=== PATIENT | female | born 1965 | race Caucasian/White ===

== ENCOUNTER 2017-01-04 16:00 | Observation (INO) | payer BC ==
--- NOTE | ~2017-01-04 | HP ---
History And Physical [place] [id number] [facility], [place]. [address] NAME: KRISTAN ALLRED : 63 STATUS : ADM Cecelia PAT#: [id number] AGE: 51 ADM/REG DATE : 01/04/17 MR#: [id number] REPORT SERV DATE: 01/05/17 DICTATED BY: ERI SON DATE: 01/05/17 REPORT STATUS : Draft TRANSCRIBED BY: MODL DATE: 01/05/17 DATE OF ADMISSION: 01/04/2017 CHIEF COMPLAINT: Chest pain with atypical features. HISTORY OF PRESENT ILLNESS: This is a very pleasant 51-year-old white female with no known history of CAD, reports that six weeks ago, she experienced an uncomfortable feeling such as difficulty catching her breath. She felt it was related to stress she had after the recent of her mother, and some anxiety. On January 03, she felt a full bloated sensation with some substernal chest pressure that radiated towards her back with an associated headache. She felt bloated to the point where she had to be aware of taking a deep breath. Her chest discomfort with that event was rated a 3/10. At the time of interview in the [facility], she was pain-free. She states that episode lasted all day Monday. She reports having consumed a [employer] sandwich with hummus and vegetables on Monday and she [facility] She reports associated shortness of breath, nausea, diaphoresis, dizziness, and belching. She did try several tablets or Rolaids with no relief. MondayJanuary 04, she again felt some shortness of breath and nausea indicating discomfort from her epigastrium to her chest with, at times a "fluttering sensation in her chest." The patient denies any personal history of myocardial infarction, stroke, DVT, or pulmonary embolus. The patient denies any recent fever or chills. Describes rare palpitations. Consumes tea "all day long" and occasional dark chocolate. No syncopal episodes. Denies PND or orthopnea. The patient receives a Wells criteria score of 0. PAST MEDICAL HISTORY: 1. Denies hypertension, dyslipidemia, or diabetes. 2. Remote tobacco abuse. PAST SURGICAL HISTORY: Hysterectomy and arthroscopic repair of left knee and a . SOCIAL HISTORY: She is with two children. 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 She does not have a structured exercise routine. Quit smoking in 1987. Denies alcohol or illicits. FAMILY HISTORY: Mother with cardiomyopathy and a history of polio, at 77. Paternal grandmother with heart attack at 50, cardiomyopathy, at the age of 79. Maternal uncle with cardiomyopathy and a heart transplant, at the age of 60. REVIEW OF SYSTEMS: A fourteen-point review of systems performed, significant for HPI. No other contributory diagnoses identified. ALLERGIES: NO KNOWN DRUG ALLERGIES. HOME MEDICINES: Vitamin D 2000 units daily, estradiol twice weekly, lutein caps nightly and History And Physical [address] [address] NAME: KRISTAN ALLRED : 63 STATUS : ADM Cecelia PAT#: [id number] AGE: 51 ADM/REG DATE : 01/04/17 MR#: [id number] REPORT SERV DATE: 01/05/17 DICTATED BY: ERI SON DATE: 01/05/17 REPORT STATUS : Draft TRANSCRIBED BY: LOS DATE: 01/05/17 probiotic nightly, multivitamin nightly, fish oil 2000 mg nightly, progesterone 100 mg nightly, and turmeric nightly. PHYSICAL EXAMINATION: VITAL SIGNS: Bilateral blood pressures on arrival, right 108/52, left 106/63; this morning, 104/54, pulse 80, respirations 12, temperature 97.9, O2 saturation 97% on room air. Height 5 feet 4 inches. Weight 177 pounds. BMI 30. GENERAL: Cooperative, in no apparent distress. HEENT: Pupils 2 mm, sclera nonicteric. Nares patent. Moist mucous membranes. No xanthelasma. NECK: Trachea midline, no thyromegaly. No JVD. No bruits. LYMPH: No cervical lymphadenopathy. No supraclavicular lymphadenopathy. RESPIRATORY: Unlabored respirations. Breath sounds clear bilaterally to posterior auscultation. No wheezes or rhonchi. CARDIOVASCULAR: Regular rate. No murmur, rub or gallop appreciated. EXTREMITIES: Without edema. Pulses 2+ bilaterally. ABDOMEN: Soft, nontender, nondistended, normal bowel sounds auscultated throughout. No organomegaly. SKIN: Warm, dry extremities. No pallor, or cyanosis. PSYCHIATRIC: Appropriate affect. Alert, oriented x3. LABORATORY DATA: Troponin less than 0.02 x3. Potassium 3.9, BUN 13, creatinine 1.02, glucose 104, magnesium 2.4. WBC 5.4, hemoglobin 13.1, hematocrit 40.4, and platelet count 221,000. EKG, sinus rhythm. ASSESSMENT AND PLAN: 1. Chest pain with atypical features. The patient has been observed in the CP[facility] overnight to rule out myocardial infarction with serial enzymes and serial electrocardiograms and held n.p.o. We will proceed with myocardial perfusion imaging today. The patient will be discharged home if low risk, no ischemia. If anything suggestive of ischemia, Cardiology referral will be initiated. Otherwise, the patient be asked to follow up with her primary care physician in one to two weeks with all studies being sent to that office. 2. Palpitations. No ectopy noted on overnight telemetry, although patient does report some episodes of fluttering while in CDU. We will check orthostatics and a thyroid stimulating hormone. Follow up with primary care physician. 3. Questionable gastroesophageal reflux disease component. Mylanta 30 mL p.o. now. CARRIE/LOS Eri Son, JARETH, [employer] History And Physical [address] [address] NAME: KRISTAN ALLRED EDIS : 63 STATUS : ADM Cecelia PAT#: [id number] AGE: 51 ADM/REG DATE : 01/04/17 MR#: [id number] REPORT SERV DATE: 01/05/17 DICTATED BY: ERI SON DATE: 01/05/17 REPORT STATUS : Draft TRANSCRIBED BY: MODL DATE: 01/05/17 / [id number] CC: Eri Son, MSN, [employer]EGAN [employer]
[2017-01-04 16:56] LABS: INTERNATIONAL NORMAL RATI 0.9 UNITS (-); PARTIAL THROMBO TIME 29.2 SEC (22.5-37.2); PROTIME (NOT ORD) 11.8 SEC (12.0-14.5)
[2017-01-04 17:03] LABS: BUN (BLOOD UREA NITROGEN) 13 MG/DL (6-23); CALCIUM, SERUM 8.7 MG/DL (8.5-10.4); CHEST PAIN PROFILE TAT 0 Hrs 18 Mins; CHLORIDE, SERUM 107 MMOL/L (96-112); CO2 (CARBON DIOXIDE) 30 MMOL/L (24-34); CREATININE 1.02 MG/DL (0.55-1.02); GFR AFRICAN AMERICAN 73 ML/MIN (>=60); GFR NON AFRICAN AMERICAN 63 ML/MIN (>=60); GLUCOSE, SERUM 104 MG/DL (60-99); POTASSIUM, SERUM 3.9 MMOL/L (3.5-5.3); SODIUM, SERUM 143 MMOL/L (135-148); TROPONIN I <0.02 NG/ML (<0.05)
[2017-01-04 17:12] LABS: BASOPHILS 0.4 %; BASOPHILS ABSOLUTE 0.02 10/3/uL (0.0-0.16); EOSINOPHILS 2.8 %; EOSINOPHILS ABSOLUTE 0.15 10/3/uL (0.0-0.53); HEMATOCRIT 40.4 % (36.0-48.0); HEMOGLOBIN 13.1 g/dL (12.0-16.0); LYMPHOCYTES 43.4 %; LYMPHOCYTES ABSOLUTE 2.36 10/3/uL (0.67-4.30); MEAN CORPUS HGB CONC 32.4 g/dL (32.0-36.0); MEAN CORPUSCULAR HEMOGLOB 29.9 pg (26.0-34.0); MEAN CORPUSCULAR VOLUME 92.2 fL (80-100); MEAN PLATELET VOLUME 10.3 fL (9.2-13.0); MONOCYTES 7.9 %; MONOCYTES ABSOLUTE 0.43 10/3/uL (0.21-1.20); NEUTROPHILS 45.5 %; NEUTROPHILS ABSOLUTE 2.48 10/3/uL (2.02-8.40); PLATELET COUNT 221 10/3/uL (150-400); RBC DISTRIBUTION WIDTH 12.6 % (12.0-16.0); RED CELL COUNT 4.38 10/6/uL (4.0-5.6); WHITE BLOOD CELLS 5.4 10/3/uL (4.5-10.5)
[2017-01-04 17:13] LABS: ER CBC TAT 0 Hrs 27 Mins; MANUAL DIFF NO %
[2017-01-04] MEDS ORDERED: MINIVELLE1 EACH TOP (17:53)
[2017-01-04] MEDS ORDERED: PROMETRIUM PO (17:54)
[2017-01-04] MEDS ORDERED: FISH-EPA1000 MG PO (17:55)
[2017-01-04] MEDS ORDERED: TUMERIC CAPSULE PO (17:56)
[2017-01-04] MEDS ORDERED: LUTEIN PO (17:58)
[2017-01-04] MEDS ORDERED: MULTIVITAMI1 PO (17:58)
[2017-01-04] MEDS ORDERED: PROBIOTIC PO (17:59)
[2017-01-04] MEDS ORDERED: VITAMIN D2000 UNIT PO (17:59)
[2017-01-05 00:38] LABS: TROPONIN I <0.02 NG/ML (<0.05)
[2017-01-05 11:35] LABS: FREE T4 1.05 NG/DL (0.76-1.46)
== END 2017-01-05 15:02 | disposition home or self-care (01) ==
LOC: ER 16:00 → CDU1 18:26
PROVIDERS: Clinical Nurse Specialist; Emergency Medicine
DX: R07.89 Other chest pain (principal); R00.2 Palpitations; Z98.890 Other specified postprocedural states; Z90.710 Acquired absence of both cervix and uterus; Z87.891 Personal history of nicotine dependence; Z79.899 Other long term (current) drug therapy
CPT/HCPCS: 71020; 78452; 80048; 83735; 84439; 84443; 84484; 85025; 85610; 85730; 93005; 93017; 99285; A9270-GY; A9502; G0378